=== PATIENT | female | born 1985 | race Caucasian/White ===

== ENCOUNTER 2023-09-20 08:00 | Outpatient (CLI) | payer OTHER, SELFPAY | END 2023-09-20 08:01 | disposition home or self-care (01) | LOC: ANHAUDIO 08:01 | PROVIDERS: PCP Otolaryngology; Visit Provider Nurse Practitioner Family | DX: F80.1 Expressive language disorder (principal) | CPT/HCPCS: 92557; 92567; 92587 ==